=== PATIENT | male | born 1980 | race Caucasian/White ===

== ENCOUNTER 2017-05-10 20:27 | Emergency (ER) | payer OTHER ==
[~2017-05-10] VITALS: Ht 193 cm; Wt 82.5 kg
[~2017-05-10 20:27] MED LIST: ACETAZOLAMIDE250 MG PO; ACULAR1 DROP OD; CLINDAMYCIN HC300 MG PO; IBUPROFEN800 MG PO; KEFLEX500 MG PO; PERCOCET 5-3251 EACH PO; ZOFRAN ODT4 MG PO
[2017-05-10] MEDS ORDERED: PERCOCET 5-3251 EACH PO (22:56)
[2017-05-10] MEDS ORDERED: GENTAMICIN SULFA5 ML OD (23:06)
== END 2017-05-10 23:20 | disposition home or self-care (01) ==
LOC: ED 20:27
DX: S05.01XA Injury of conjunctiva and corneal abrasion without foreign body, right eye, initial encounter (principal); F17.200 Nicotine dependence, unspecified, uncomplicated; X58.XXXA Exposure to other specified factors, initial encounter
CPT/HCPCS: 99283

== ENCOUNTER 2017-05-12 16:39 | Emergency (ER) | payer OTHER ==
[~2017-05-12] VITALS: Ht 193 cm; Wt 82.5 kg
[~2017-05-12 16:39] MED LIST changes: +GENTAMICIN SULFA5 ML OD
[2017-05-12] MEDS ORDERED: NORCO 5-325 TA1 EACH PO (17:53)
== END 2017-05-12 18:03 | disposition home or self-care (01) ==
LOC: ED 16:39
DX: S40.011A Contusion of right shoulder, initial encounter (principal); F17.200 Nicotine dependence, unspecified, uncomplicated; V13.4XXA Pedal cycle driver injured in collision with car, pick-up truck or van in traffic accident, initial encounter; Z79.891 Long term (current) use of opiate analgesic; Z79.899 Other long term (current) drug therapy
CPT/HCPCS: 73030; 99283

== ENCOUNTER 2017-08-25 13:00 | Emergency (ER) | payer OTHER ==
[~2017-08-25] VITALS: Ht 193 cm; Wt 82.5 kg
[~2017-08-25 13:00] MED LIST changes: +NORCO 5-325 TA1 EACH PO
== END 2017-08-25 13:22 | disposition home or self-care (01) ==
LOC: ED 13:00
DX: Z00.8 Encounter for other general examination (principal)

== ENCOUNTER 2017-11-18 17:16 | Emergency (ER) | payer OTHER ==
[~2017-11-18] VITALS: Ht 193 cm; Wt 82.5 kg
--- OUTSIDE RECORDS SUMMARY | ~2017-11-18 | XMS | Clinical Summary ---
Demographics + + + | Address | [address] | | | [place] [address] | + + + | Home Phone | | + + + | Preferred Language | Unknown | + + + | Marital Status | | + + + | Amish Affiliation | NON | + + + [...] +------+ +---------+ + Care Team Providers + +------+-------+ | Care Medical Education Specialist Name | Role | Phone | + +------+-------+ | Toney Serna DO | PP | tel | + +------+-------+ Source Comments BETZY is fully live on both [facility] Amb[facility] and [facility] InPatient.[facility] Allergies No Known Allergies Current Medications [...] into | 10 mL | 2 | 07/ | | Activ | | acetate 1 % | the right eye four | | | 7/20 | | e | | ophthalmic | times daily. | | | 14 | | | | drops,suspension | | | | | | | + + +---------+---------+------+------+-------+ | promethazine 25 mg | Take 1 tablet by | 5 | 0 | 07/ | | Activ | | oral tablet [...] | | 08/31/ | ES-500 | | [id number]: Qty: 1 on | | | LOMB | | 2014 | 0-S / | | 04/30/2014 by Joseph Ochoa | | | SURGICAL | | | /[id number] | | MD Oscar | | | | | | | + +------+------+ +--------+--------+--------+ Results Not on filefrom Last 3 Months
--- OUTSIDE RECORDS SUMMARY | ~2017-11-18 | XMS | Clinical Summary ---
Demographics + + + | Address | [address] | | | [place] [address] | + + + | Home Phone | | + + + | Preferred Language | Unknown | + + + | Marital Status | | + + + | Restorationist Affiliation | NON | + + + [...] Care Team Providers + +------+-------+ | Care Pan Tank Worker Name | Role | Phone | + +------+-------+ | Toney Serna DO | PP | tel | + +------+-------+ Source Comments BETZY is fully live on both [facility] Amb[facility] and [facility] InPatient.[facility] Allergies No Known Allergies Current [...] | | 08/31/ | ES-500 | | [id number]: Qty: 1 on | | | LOMB | | 2014 | 0-S / | | 04/30/2014 by Joseph Ochoa | | | SURGICAL | | | /[id number] | | MD Oscar | | | | | | | + +------+------+ +--------+--------+--------+ Results Not on filefrom Last 3 Months
[2017-11-18] MEDS ORDERED: CILOXAN3.5 GM OPTH (17:54)
== END 2017-11-18 18:18 | disposition home or self-care (01) ==
LOC: ED 17:16
DX: H15.89 Other disorders of sclera (principal); F17.200 Nicotine dependence, unspecified, uncomplicated
CPT/HCPCS: 99282

== ENCOUNTER 2017-12-06 17:44 | Emergency (ER) | payer OTHER ==
[~2017-12-06] VITALS: Ht 193 cm; Wt 82.5 kg
--- OUTSIDE RECORDS SUMMARY | ~2017-12-06 | XMS | Clinical Summary ---
Demographics + + + | Address | [address] | | | [place] [address] | + + + | Home Phone | | + + + | Preferred Language | Unknown | + + + | Marital Status | | + + + | Mosque Affiliation | NON | + + + [...] | Unavailable | + + + Support +------+ +---------+ + | Name | Relationship | Address | Phone | +------+ +---------+ + ECON | Unknown | | +------+ +---------+ + Care Team Providers + +------+ + | Care Venereal Disease Control Head Name | Role | Phone | + +------+ + | Toney Serna DO | PP | | + +------+ + Source Comments BETZY is fully live on both [facility] Amb[facility] and [facility] InPatient.[facility] Allergies No Known Allergies Current Medications [...] | | 08/31/ | ES-500 | | [id number]: Qty: 1 on | | | LOMB | | 2015 | 0-S / | | 04/30/2014 by Joseph Ochoa | | | SURGICAL | | | /[id number] | | MD Oscar | | | | | | | + +------+------+ +--------+--------+--------+ Results Not on filefrom Last 3 Months
--- OUTSIDE RECORDS SUMMARY | ~2017-12-06 | XMS | Clinical Summary ---
Demographics + + + | Address | [address] | | | [place] [address] | + + + | Home Phone | | + + + | Preferred Language | Unknown | + + + | Marital Status | | + + + | Anabaptism Affiliation | NON | + + + [...] Team Providers + +------+ + | Care Art Therapist Name | Role | Phone | + +------+ + | Toney Serna DO | PP | | + +------+ + Source Comments BETZY is fully live on both [facility] Ambulatory and [facility] InPatient.[facility] Allergies No Known Allergies Current Medications + [...] | | 08/31/ | ES-500 | | [id number]: Qty: 1 on | | | LOMB | | 2015 | 0-S / | | 04/30/2014 by Joseph Ochoa | | | SURGICAL | | | /[id number] | | MD Oscar | | | | | | | + +------+------+ +--------+--------+--------+ Results Not on filefrom Last 3 Months
[~2017-12-06 17:44] MED LIST changes: +CILOXAN3.5 GM OPTH
[2017-12-06] MEDS ORDERED: TIMOPTIC 0.5%1 EACH OPTH (19:47)
== END 2017-12-06 20:26 | disposition home or self-care (01) ==
LOC: ED 17:44
DX: H40.051 Ocular hypertension, right eye (principal); H57.11 Ocular pain, right eye; F17.200 Nicotine dependence, unspecified, uncomplicated
CPT/HCPCS: 99283

== ENCOUNTER 2018-01-03 08:17 | Emergency (ER) | payer OTHER ==
[~2018-01-03] VITALS: Ht 193 cm; Wt 82.6 kg
[~2018-01-03 08:17] MED LIST changes: +TIMOPTIC 0.5%1 EACH OPTH
--- OUTSIDE RECORDS SUMMARY | 2018-01-03 08:45 | XMS | Clinical Summary ---
Demographics + + + | Address | [address] | | | [place] [address] | + + + | Home Phone | | + + + | Preferred Language | Unknown | + + + | Marital Status | | + + + | Mandaen Affiliation | NON | + + + | Race | White | + + + | Ethnic Group | Not or | + + + Author + + + | Author | [facility] | + + + | Organization | [facility] | + + + | Address | Unknown | + + + | Phone | Unavailable | + + + Support + + +---------+ + | Name | Relationship | Address | Phone | + + +---------+ + | Shannon Griggs | MARILYN | Unknown | | + + +---------+ + Care Team Providers + +------+ + | Care Plastic Duplicator Name | Role | Phone | + +------+ + | Toney Serna DO | PP | | + +------+ + Source Comments BETZY is fully live on both [facility] Ambulatory and [facility] InPatient.[facility] Allergies No Known Allergies Current Medications + + +---------+---------+------+------+-------+ | Prescription | Sig. | Disp. | Refills | Star | End | Statu | | | | | | t | Date | s | | | | | | Date | | | + + +---------+---------+------+------+-------+ | erythromycin 5 | Apply inch ribbon | 3.5 g | 0 | 06/2 | | Activ | | mg/gram (0.5 %) | to right eye 3 | | | 6/20 | | e | | ophthalmic ointment | times daily | | | 14 | | | + + +---------+---------+------+------+-------+ | atropine 1 % | Place 1 drop into | 5 mL | 0 | 07/1 | | Activ | | ophthalmic drops | the right eye once | | | 7/20 | | e | | | daily. | | | 14 | | | + + +---------+---------+------+------+-------+ | prednisoLONE | Place 1 drop into | 10 mL | 2 | 07/1 | | Activ | | acetate 1 % | the right eye four | | | 7/20 | | e | | ophthalmic | times daily. | | | 14 | | | | drops,suspension | | | | | | | + + +---------+---------+------+------+-------+ | promethazine 25 mg | Take 1 tablet by | 5 | 0 | 07/1 | | Activ | | oral tablet | mouth four times | tablet | | 7/20 | | e | | | daily as needed for | | | 14 | | | | | nausea/vomiting. | | | | | | + + +---------+---------+------+------+-------+ Active Problems + + + | Problem | Noted Date | + + + | Ruptured globe, right eye | 04/26/2014 | + + + | Foreign body, eye | 04/26/2014 | + + + Family History + + +------+ + | Medical History | Relation | Name | Comments | + + +------+ + | Additional Family | Mother | | neg | | History | | | | + + +------+ + + +------+--------+ + | Relation | Name | Status | Comments | + +------+--------+ + | Mother | | | | + +------+--------+ + Social History + +-------+ +--------+------+ | Tobacco Use | Types | Packs/Day | Years | Date | | | | | Used | | + +-------+ +--------+------+ | Current Every Day | | 1 | 15 | | | Smoker | | | | | + +-------+ +--------+------+ + + | Comments: 0.5 PPD | + + + + +---------+ + | Alcohol Use | Drinks/We | oz/Week | Comments | | | ek | | | + + +---------+ + | Yes | | | "couple beer a week" | + + +---------+ + + + + | Sex Assigned at | Date Recorded | | | | + + + | Not on file | | + + + Last Filed Vital Signs + + + + | Vital Sign | Reading | Time Taken | + + + + | Blood Pressure | 142/85 | 04/30/2014 7:00 PM PDT | + + + + | Pulse | 65 | 04/30/2014 8:30 PM PDT | + + + + | Temperature | 36.6 C (97.9 F) | 04/30/2014 8:30 PM PDT | + + + + | Respiratory Rate | 16 | 04/30/2014 8:30 PM PDT | + + + + | Oxygen Saturation | 99% | 04/30/2014 8:30 PM PDT | + + + + | Inhaled Oxygen | - | - | | Concentration | | | + + + + | Weight | 81.6 kg (180 lb) | 04/30/2014 10:20 AM PDT | + + + + | Height | 193 cm (6' 4") | 04/30/2014 10:20 AM PDT | + + + + | Body Mass Index | 21.91 | 04/30/2014 10:20 AM PDT | + + + + Plan of Treatment + + + + + | Health Maintenance | Due Date | Last Done | Comments | + + + + + | INFLUENZA VACCINE | | | | | (FLU SHOT) | 7 | | | + + + + + Implants + +------+------+ +--------+--------+--------+ | Implanted | Type | Area | Manufacture | Device | Expira | Model | | | | | r | | tion | / | | | | | | Identi | Date | Serial | | | | | | fier | | / Lot | + +------+------+ +--------+--------+--------+ | Oil Silicone 5000 - | | | BAUSCH & | | 08/31/ | ES-500 | | [id number]: Qty: 1 on | | | LOMB | | 2014 | 0-S / | | 04/30/2014 by Joseph Ochoa | | | SURGICAL | | | /[id number] | | MD Oscar | | | | | | | + +------+------+ +--------+--------+--------+ Results Not on filefrom Last 3 Months
--- OUTSIDE RECORDS SUMMARY | 2018-01-03 08:45 | XMS | Clinical Summary ---
Demographics + + + | Address | [address] | | | [place] [address] | + + + | Home Phone | | + + + | Preferred Language | Unknown | + + + | Marital Status | | + + + | Judaism Affiliation | NON | + + + [...] Team Providers + +------+ + | Care Youth Development Professional Name | Role | Phone | + +------+ + | Toney Serna DO | PP | | + +------+ + Source Comments BETZY is fully live on both [facility] Ambulatory and [facility] InPatient.[facility] Allergies No Known Allergies Current Medications + [...] | | 08/31/ | ES-500 | | [id number]: Qty: 1 on | | | LOMB | | 2014 | 0-S / | | 04/30/2014 by Joseph Ochoa | | | SURGICAL | | | /[id number] | | MD Oscar | | | | | | | + +------+------+ +--------+--------+--------+ Results Not on filefrom Last 3 Months
== END 2018-01-03 08:42 | disposition home or self-care (01) ==
LOC: ED 08:17
DX: S00.83XA Contusion of other part of head, initial encounter (principal); M54.6 Pain in thoracic spine; Z87.891 Personal history of nicotine dependence; W01.0XXA Fall on same level from slipping, tripping and stumbling without subsequent striking against object, initial encounter
CPT/HCPCS: 99283; J2370; J2405

== ENCOUNTER 2018-06-07 07:41 | Emergency (ER) | payer OTHER ==
[~2018-06-07] VITALS: Ht 193 cm; Wt 82.5 kg
[2018-06-07] MEDS ORDERED: PREDNISOLONE ACE5 ML OPTH (07:56)
[2018-06-07] MEDS ORDERED: ATROPINE (07:57)
[2018-06-07] MEDS ORDERED: ATROPINE SULFATE2 ML OP (07:58)
== END 2018-06-07 09:28 | disposition home or self-care (01) ==
LOC: ED 07:41
DX: Z76.0 Encounter for issue of repeat prescription (principal); F17.200 Nicotine dependence, unspecified, uncomplicated; Z79.899 Other long term (current) drug therapy; Z79.52 Long term (current) use of systemic steroids
CPT/HCPCS: 93005; 93010; 99283